=== PATIENT | male | born 1955 | race Caucasian/White ===

== ENCOUNTER 2016-07-06 07:51 | Day surgery (SDC) | payer MEDICARE ==
--- NOTE | ~2016-07-06 | EGD ---
EGD REPORT [facility] [address] [place] [address] NAME: GIO PINA : [birth year] STATUS : REG [facility]#: [id number] AGE: 60 ADM/REG DATE : 07/06/16 MR#: [id number] REPORT SERV DATE: 07/06/16 DICTATED BY: SHANNEN CHERRY DATE: 07/06/16 REPORT STATUS : Draft TRANSCRIBED BY: [employer] DATE: 07/06/16 Endoscopy Center Patient Name: Gio Pina Date of : 1955 Attending MD: SHANNEN CHERRY MD Procedure Date No Time: 07/06/2016 Procedure: Upper GI endoscopy Indications: Epigastric abdominal pain, Heartburn, Suspected esophageal reflux, Unexplained chest pain Referring MD: BAILEY GRAHAM MD Medicines: as per anesthesia Complications: No immediate complications. Procedure: Pre-Anesthesia Assessment: - ASA Grade Assessment: III - A patient with severe systemic disease. After obtaining informed consent, the endoscope was passed under direct vision. Throughout the procedure, the patient's blood pressure, pulse, and oxygen saturations were monitored continuously. The GIF H190 [id number] was introduced through the mouth, and advanced to the body of the stomach. The upper GI endoscopy was accomplished without difficulty. The patient tolerated the procedure. Findings: The examined esophagus was normal. A large amount of food (residue) was found in the cardia, in the gastric fundus and in the gastric body. exam stopped because of food Impression: - Normal esophagus. - A large amount of food (residue) in the stomach. Recommendation: - Low residue diet. - Repeat the upper endoscopy. Procedure Code(s): --- Professional --- 63867, 52, Esophagogastroduodenoscopy, flexible, transoral; diagnostic, including collection of specimen(s) by brushing or washing, when performed (separate procedure) Diagnosis Code(s): --- Professional --- R10.13, Epigastric pain R12, Heartburn EGD REPORT [facility] [address] [address] NAME: GIO PINA : [birth year] STATUS : REG [facility]#: [id number] AGE: 60 ADM/REG DATE : 07/06/16 MR#: [id number] REPORT SERV DATE: 07/06/16 DICTATED BY: SHANNEN CHERRY. DATE: 07/06/16 REPORT STATUS : Draft TRANSCRIBED BY: [employer] DATE: 07/06/16 R07.9, Chest pain, unspecified CPT copyright 2013 [employer]. All rights reserved. The codes documented in this report are preliminary and upon sales support rep review may be revised to meet current compliance requirements. SHANNEN CHERRY MD 07/06/2016 10:47 AM This report has been signed electronically. Number of Addenda: 0 Note Initiated On: 07/06/2016 9:43 AM Scope Withdrawal Time 0 hours 0 minutes 0 seconds [address] [facility] [place] [address]
[~2016-07-06 07:51] MED LIST: ADVAIR250 INH; ALTA2.5 PO; ASA5GR PO; ASAB PO; BREO ELLIPTA INH; CRESTOR5 MG PO; EFFIENT10 PO; GLUCOPHAGE1000 MG PO; HUMALOG SC; K-TABS10 MEQ PO; L40 PO; LEVEMIR SC; NEXIUM40 PO; NOVOLOG SC; PROAIR HFA INH; RAN500 PO; SPIRIVA INH; SUCR PO; VITAMIN D31000 UNIT PO; ZANTAC300 MG PO; ZETIA PO; ZOCOR20 PO
[2016-08-10] MEDS ORDERED: CLARIT10 PO (13:32)
[2016-08-10] MEDS ORDERED: FLONASE NAS (13:32)
[2016-08-10] MEDS ORDERED: VITAMIN D31000 UNIT PO (13:34)
[2016-08-10] MEDS ORDERED: DALIRESP500 MCG PO (13:36)
== END 2016-07-06 23:59 | disposition home health service (06) ==
LOC: DMU 07:51
PROVIDERS: Internal Medicine Gastroenterology
PROC: 0DJ08ZZ Inspection of Upper Intestinal Tract, Via Natural or Artificial Opening Endoscopic (ICD-10-PCS; principal; 2016-07-06 09:30)
DX: R10.13 Epigastric pain (principal); I25.10 Atherosclerotic heart disease of native coronary artery without angina pectoris; K21.9 Gastro-esophageal reflux disease without esophagitis; E78.00 Pure hypercholesterolemia, unspecified; E11.9 Type 2 diabetes mellitus without complications; J44.9 Chronic obstructive pulmonary disease, unspecified; J45.909 Unspecified asthma, uncomplicated; G47.33 Obstructive sleep apnea (adult) (pediatric); D64.9 Anemia, unspecified; Z99.81 Dependence on supplemental oxygen; Z87.891 Personal history of nicotine dependence; Z90.49 Acquired absence of other specified parts of digestive tract; Z98.41 Cataract extraction status, right eye; Z98.42 Cataract extraction status, left eye; Z98.890 Other specified postprocedural states
CPT/HCPCS: 71010; 82962

== ENCOUNTER 2016-08-12 08:15 | Day surgery (SDC) | payer MEDICARE ==
--- NOTE | ~2016-08-12 | EGD ---
EGD REPORT [facility] [address] [place] [address] NAME: GIO PINA : [birth year] STATUS : REG [facility]#: [id number] AGE: 60 ADM/REG DATE : 08/12/16 MR#: [id number] REPORT SERV DATE: 08/12/16 DICTATED BY: SHANNEN CHERRY DATE: 08/12/16 REPORT STATUS : Draft TRANSCRIBED BY: [employer] DATE: 08/12/16 Endoscopy Center Patient Name: Gio Pina Date of : 1955 Attending MD: SHANNEN CHERRY MD Procedure Date No Time: 08/12/2016 Procedure: Upper GI endoscopy Indications: Epigastric abdominal pain, Heartburn, Suspected esophageal reflux, Gastroparesis Referring MD: BAILEY GRAHAM MD Medicines: as per anesthesia Complications: No immediate complications. Procedure: Pre-Anesthesia Assessment: - ASA Grade Assessment: III - A patient with severe systemic disease. After obtaining informed consent, the endoscope was passed under direct vision. Throughout the procedure, the patient's blood pressure, pulse, and oxygen saturations were monitored continuously. The GIF H190 [id number] was introduced through the mouth, and advanced to the third part of duodenum. The upper GI endoscopy was accomplished without difficulty. The patient tolerated the procedure. Findings: Diffuse candidiasis was found in the entire esophagus. brushings done The entire examined stomach was normal. The cardia and gastric fundus were normal on retroflexion. The examined duodenum was normal. Impression: - Monilial esophagitis. - Normal stomach. - Normal examined duodenum. Recommendation: - Await pathology results. Procedure Code(s): --- Professional --- 92292, Esophagogastroduodenoscopy, flexible, transoral; diagnostic, including collection of specimen(s) by brushing or washing, when performed (separate procedure) Diagnosis Code(s): --- Professional --- B37.81, Candidal esophagitis R10.13, Epigastric pain R12, Heartburn EGD REPORT [facility] [address] [address] NAME: GIO PINA : [birth year] STATUS : REG [facility]#: [id number] AGE: 60 ADM/REG DATE : 08/12/16 MR#: [id number] REPORT SERV DATE: 08/12/16 DICTATED BY: SHANNEN CHERRY. DATE: 08/12/16 REPORT STATUS : Draft TRANSCRIBED BY: [employer] DATE: 08/12/16 K31.84, Gastroparesis CPT copyright 2013 [employer]. All rights reserved. The codes documented in this report are preliminary and upon analytics lead review may be revised to meet current compliance requirements. SHANNEN CHERRY MD 08/12/2016 9:21 AM This report has been signed electronically. Number of Addenda: 0 Note Initiated On: 08/12/2016 8:19 AM Scope Withdrawal Time 0 hours 0 minutes 0 seconds [id number] [facility] [place] [address]
[~2016-08-12 08:15] MED LIST changes: +CLARIT10 PO; +DALIRESP500 MCG PO; +FLONASE NAS
== END 2016-08-12 23:59 | disposition home or self-care (01) ==
LOC: DMU 08:15
PROVIDERS: Internal Medicine Gastroenterology
PROC: 0DJ08ZZ Inspection of Upper Intestinal Tract, Via Natural or Artificial Opening Endoscopic (ICD-10-PCS; principal; 2016-08-12 08:30)
DX: R10.13 Epigastric pain (principal); K31.84 Gastroparesis; B37.81 Candidal esophagitis; J44.9 Chronic obstructive pulmonary disease, unspecified; I25.10 Atherosclerotic heart disease of native coronary artery without angina pectoris; Z95.5 Presence of coronary angioplasty implant and graft; E11.9 Type 2 diabetes mellitus without complications; Z79.84 Long term (current) use of oral hypoglycemic drugs; Z79.82 Long term (current) use of aspirin; Z79.4 Long term (current) use of insulin
CPT/HCPCS: 82962; 87210